=== PATIENT | male | born 1965 | race Caucasian/White ===

== ENCOUNTER 2024-05-01 04:12 | Emergency (ER) | payer BC, SELFPAY ==
--- NOTE | 2024-05-01 04:23 | EKG12_ITS ---
Test Reason : DYSRHYTHMIA Blood Pressure : */* mmHG Vent. Rate : 84 BPM Atrial Rate : 84 BPM P-R Int : 140 ms QRS Dur : 78 ms QT Int : 378 ms P-R-T Axes : 45 26 36 degrees QTcB Int : 446 ms Normal sinus rhythm Normal ECG Confirmed by RENÉ MELGAR, BRAYAN ([id number]), assistant film editor AMPARO SCHMITT ([id number]) on 05/05/2024 7:42:12 AM Referred By: TL Confirmed By: BRAYAN MERRITT MD
--- NOTE | 2024-05-01 04:25 | CT_ITS ---
PROCEDURE: STROKE CTA HEAD AND NECK W/CON REASON FOR EXAM: Right facial paralysis. TECHNIQUE: CTA imaging of the head and neck from the aortic arch to the skull vertex with intravenous contrast. 3D reconstructions. CONTRAST: COMPARISON: None. # of known CTs in the past 12 months: 0 # of known Cardiac Nuclear Medicine Studies in the past 12 months: 0 FINDINGS: Aortic Arch: Normal size and branching pattern. Mild atherosclerotic plaque. Brachiocephalic and Subclavians: Unremarkable RIGHT Carotid: Right CCA: Unremarkable. Right ICA: Mild calcified and soft plaque. Maximum stenosis (NASCET): Less than 10% % Right ECA: Unremarkable. LEFT Carotid: Left CCA: Unremarkable. Left ICA: Unremarkable. Left ECA: Unremarkable. Vertebrals: Codominant. Arise from the subclavians. Both vertebrals form the basilar. RIGHT Vertebral: Unremarkable. LEFT Vertebral: Unremarkable. No intracranial aneurysms or large vascular malformations are identified. Anterior cerebral arteries: Unremarkable. Middle cerebral arteries: Unremarkable. Basilar artery: Unremarkable. Posterior cerebral arteries: Unremarkable. Other major branches of the posterior circulation: Unremarkable. Major venous structures: Unremarkable. Other findings: No lymphadenopathy. Lung apices are clear. Bones are unremarkable. CT/STROKE CTA Head AND Neck W/Con IMPRESSION: RIGHT CAROTID: Minimal plaque at the origin of the right internal carotid arter y. LEFT CAROTID: Unremarkable VERTEBRALS: Unremarkable INTRACRANIAL: Unremarkable One or more dose reduction techniques were used (e.g., Automated exposure contr ol, adjustment of the mA and/or kV according to patient size, use of iterative reconstruction technique). Reading Location: [place] [id number]
--- NOTE | 2024-05-01 04:25 | CT_ITS ---
PROCEDURE: STROKE BRAIN/HEAD WITHOUT CONT REASON FOR EXAM: Right facial paralysis. TECHNIQUE: Noncontrasted CT of the head, with sagittal and coronal reconstructed images. COMPARISON: None. FINDINGS: No intracranial hemorrhage, mass, or mass effect is seen. No extra-axial fluid collection is noted. Ventricles appear symmetric and within the normal range. No orbital pathology is noted. Minimal mucosal disease is seen of the left sphenoid sinus. No air-fluid level is noted. The remaining paranasal sinuses appear clear, as do the mastoid air cells. CT/STROKE Brain/Head without Cont IMPRESSION: No intracranial hemorrhage or other acute process is seen at this time. One or more dose reduction techniques were used (e.g., Automated exposure contr ol, adjustment of the mA and/or kV according to patient size, use of iterative reconstruction technique). Reading Location: [id number]
--- NOTE | 2024-05-01 04:38 | RAD_ITS ---
PROCEDURE: CHEST 1 VIEW (PORTABLE) REASON FOR EXAM: Chest pain. TECHNIQUE: Frontal and lateral views of the chest. COMPARISON: None. FINDINGS: EKG electrodes are seen. The heart size is normal. The mediastinal contour is unremarkable. The lungs are clear. Degenerative changes are identified within the thoracic spine. RAD/Chest 1 View (Portable) IMPRESSION: NEGATIVE CHEST Reading Location: [place] [id number]
[2024-05-01 07:08] LABS: Bedside Glucose 130 mg/dL (74-106)
[2024-05-01 07:30] LABS: Anion Gap 6 (5-15); BUN 12 mg/dL (7-18); Calcium,Total 8.9 mg/dL (8.5-10.1); Chloride 110 mmol/L (98-107); Creatinine, Serum 0.75 mg/dL (0.70-1.30); EST Glomerular Filtration Rate 113 mL/min (>60); Est Glom Filt Rate - Afr Amer 137 mL/min (>60); Glucose 126 mg/dL (74-106); Potassium 3.7 mmol/L (3.5-5.1); Sodium Level 142 mmol/L (136-145); Troponin-I HS 4 pg/mL (3.0-78.0)
[2024-05-01 08:19] LABS: Absolute Lymphocyte Count 1.67 X10^3/uL (0.83-4.51); Absolute Neutrophil Count 3.6 X10^3/uL (2.0-7.7); Basophil# 0.03 X10^3/uL; Basophil% 0.5 % (0-1); Eosinophil# 0.16 X10^3/uL; Eosinophils% 2.6 % (0-5); Hematocrit 46.1 % (40-54); Hemoglobin 15.2 g/dL (13.0-16.5); Lymphocyte # 1.67 X10^3/ul (0.83-4.51); Lymphocyte % 27.6 % (19-41); Mean Corpuscular Hgb 27.9 pg (27.0-32.0); Mean Corpuscular Volume 84.6 fL (80-94); Mean Platelet Vol. 10.7 fl (6.2-12.0); Monocyte# 0.56 X10^3/uL; Monocyte% 9.3 % (0-10); NRBC Flagged by Analyzer 0 % (0-5); Neutrophil % 59.5 % (47-70); Platelet Count 189 K/mm3 (150-450); RBC Distribution Width CV 13.6 % (11.6-14.6); RBC Distribution Width SD 41.5 fl (35.1-43.9); Red Blood Count 5.45 M/mm3 (4.6-6.2); White Blood Count 6.1 K/mm3 (4.4-11.0)
[2024-05-01 10:13] LABS: Partial Thromboplast Time 28.7 Seconds (24.1-36.2); Prothrombin Time (Protime)PT. 13.5 SECONDS (11.7-14.9)
--- NOTE | 2024-05-02 02:10 | EX.ED.DYSGE1 ---
PFSH PFSH Home Medications ?Medication ?Instructions ?Recorded ?Last Taken ?Type oxycodone-acetaminophen 5 mg-325 1 - 2 tab PO Q6H PRN PRN Pain #30 09/19/14 Unknown Rx mg tablet tabs ramipril 2.5 mg capsule mg PO DAILY 09/19/14 Unknown History Allergy/AdvReac Type Severity Reaction Status Date / Time No Known Allergies Allergy Verified 09/19/14 11:23 Social History Smoking Status: Current every day smoker MDM MDM MDM Narrative Medical decision making narrative: ED Summary NAME OF PROVIDER: Nathaniel Haro MD PATIENT: Chevy Zimmerman ACCT NUMBER: Fee [id number] DATE OF SERVICE 05/01/2024 CHIEF COMPLAINT Facial weakness HISTORY OF PRESENT ILLNESS Presenting worsening facial weakness upon awakening 3 AM last an hour prior to arrival.? Wakes up at 3 AM for work.? Went to sleep at 8:30 AM.? States yesterday morning noted some blurriness to the right eye.? After awakening brushing his teeth fluid coming out of his right side of his face.? He felt some numbness to his cheeks.? Denies stroke history.? He has had a couple viral illnesses most recent 02 March towards [place] a month ago.? No fevers.? No stroke history.? Denies speech changes denies hemiparesis.? Tobacco history less than half pack per day.? Denies any daily medications.? Reported right-sided headache. Past Medical History Denies chronic disease Social History Less than half pack per day smoker.? Denies alcohol or illicit drug use. Review of Systems General: Denies fever, chills, sweats HEENT: Denies sore throat or trouble swallowing Neck: Denies pain Cardiovascular: Denies chest pains, palpitations, racing heart, leg swelling Respiratory: Denies dyspnea, cough Abdomen: Denies pain, nausea, vomiting, or diarrhea : Denies dysuria or frequency Extremities: Denies pain or swelling Neurologic: Right-sided headache, facial paresthesias, facial weakness Skin: Denies rash or wounds PHYSICAL EXAMINATION General: Alert and oriented ?3, no acute distress HEENT: Normocephalic, atraumatic. Moist mucosa membranes.? Right lip droop, fully closes eyes, right forehead sparing. Neck: supple, nontender. Cardiovascular: Regular rate and rhythm, no murmurs Respiratory: Normal breath sounds, symmetric, no distress Abdomen: Soft, nontender, nondistended Extremities: Nontender, no edema, pulses intact ?4 Neuro: NIH of 2 for lip droop and maxillary paresthesia on right compared to the left side. EMERGENCY DEPARTMENT COURSE AND TREATMENT Interventions / MDM: Differential diagnosis: Atypical Mayer's palsy. Diagnosis considered but do not suspect: CVA, no extremity deficit, localized to the face concerning atypical Mayer's palsy discussion with neurologist who examined the patient. My EKG interpretation: Sinus rhythm rate of 84, no ST or T wave changes.? Imaging independently reviewed and interpreted by myself: CT brain discussion with radiologist no acute process.? CT angiogram head and neck discussed with radiologist no acute process. External documents reviewed: N/A Test considered but not ordered:N/A ED course: Patient awaken right-sided facial droop with paresthesia sparing of the right forehead.? Went to sleep at 8:30 PM.? Stroke team was activated.? Blood glucose 130. 0500: Telestroke neurologist Dr. Wills evaluate the patient feels atypical Mayer's palsy not stroke symptoms. Results of CTA and CT head and discussed radiologist both negative.? Labs all normal with CBC BMP troponin and coags.? EKG sinus rhythm.? Patient started on prednisone and antivirals.? Outpatient follow-up with his doctor.? Return precautions.? All questions were answered. Re-evaluation: stable Disposition discussed with patient/family/significant other: Patient Critical care time: 20 minutes and evaluate the patient, discussion with radiology and teleneurology. Case discussed with consulting clinician: Telestroke, radiology ? 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 Right facial weakness this note was generated with [employer] dictation software. It may contain incorrect words, spelling, and punctuation that were not noted in checking the note before signing. Lab Data Attestation: I reviewed the patient's lab results. Labs: Laboratory Results - last 24 hr 05/01/24 05/01/24 04:16 04:26 WBC 6.1 RBC 5.45 Hgb 15.2 Hct 46.1 MCV 84.6 MCH 27.9 MCHC 33.0 RDW Std Deviation 41.5 RDW Coeff of Conner 13.6 Plt Count 189 MPV 10.7 Immature Gran % (Auto) 0.500 Neut % (Auto) 59.5 Lymph % (Auto) 27.6 [place] % (Auto) 9.3 Eos % (Auto) 2.6 Baso % (Auto) 0.5 Absolute Neuts (auto) 3.6 Absolute Lymphs (auto) 1.67 Nucleated RBC % 0 PT 13.5 INR 1.0 APTT 28.7 Sodium 142 Potassium 3.7 Chloride 110 H Carbon Dioxide 26.0 Anion Gap 6 BUN 12 Creatinine 0.75 Est GFR (MDRD) Af Amer 137 Est GFR (MDRD) Non-Af 113 BUN/Creatinine Ratio 16.0 Glucose 126 H Calcium 8.9 Troponin I High Sens 4 POC Glucose 130 H Radiography Diagnostic Testing: Clinical Impression(s) from Imaging Studies Brain CT 05/01/24 04:25 IMPRESSION: No intracranial hemorrhage or other acute process is seen at this time. One or more dose reduction techniques were used (e.g., Automated exposure control, adjustment of the mA and/or kV according to patient size, use of iterative reconstruction technique). Reading Location: [address] Head/Neck CTA 05/01/24 04:25 IMPRESSION: RIGHT CAROTID: Minimal plaque at the origin of the right internal carotid artery. LEFT CAROTID: Unremarkable VERTEBRALS: Unremarkable INTRACRANIAL: Unremarkable One or more dose reduction techniques were used (e.g., Automated exposure control, adjustment of the mA and/or kV according to patient size, use of iterative reconstruction technique). Reading Location: [facility] Chest X-Ray 05/01/24 04:38 IMPRESSION: NEGATIVE CHEST Reading Location: [facility] Discharge Plan Triage ED Provider: Nathaniel Haro Dx/Rx/DC Orders Clinical Impression: Right-sided Mayer's palsy, Facial weakness Prescriptions: No Action ramipril 2.5 MG capsule PO DAILY oxycodone-acetaminophen 1 TABLET tablet 1 - 2 tab PO Q6H PRN PRN (Reason: Pain) Qty: 30 0RF Primary Care Provider: Care Physician,No Primary Referrals: Care Physician,No Primary [Primary Care Provider] - Print Language: Occitan Disposition Disposition: Home, Self Care
== END 2024-05-01 23:00 | disposition home or self-care (01) ==
PROVIDERS: Emergency Provider Emergency Medicine; Visit Provider Emergency Medicine
DX: G51.0 Bell's palsy (principal); F17.210 Nicotine dependence, cigarettes, uncomplicated
CPT/HCPCS: 36415; 70450; 70496; 70498; 71045; 80048; 82962; 84484; 85025; 85610; 85730; 93005; 99285; Q9967; A4216